=== PATIENT | male | born 1995 | race Caucasian/White ===

== ENCOUNTER 2021-12-11 18:48 | Emergency (ER) | payer BC ==
[2021-12-11 19:52] VITALS: TEMP 97.8
--- NOTE | 2021-12-11 20:48 | XR ---
EXAMINATION TYPE: XR shoulder complete RT DATE OF EXAM: 12/11/2021 COMPARISON: NONE HISTORY: Pain TECHNIQUE: 3 views FINDINGS: The glenohumeral joint shows joint space narrowing. The humeral head is somewhat posterior on the scapular view. The AC joint is intact. IMPRESSION: There is a partial posterior dislocation of the right humeral head. No fracture seen.
[2021-12-11] MEDS ORDERED: PROPOFOL 10 MG/ML 20 ML VIAL IV ONE (22:30)
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
--- NOTE | 2021-12-11 23:17 | XR ---
EXAMINATION TYPE: XR shoulder limited RT DATE OF EXAM: 12/11/2021 COMPARISON: NONE HISTORY: Post reduction TECHNIQUE: Single view FINDINGS: The glenohumeral joint appears to be anatomic. Exam is limited. No fracture seen. IMPRESSION: There appears to be anatomic reduction of the posterior shoulder joint dislocation compar ed to initial exam.
[2021-12-12 00:23] VITALS: RESP 17
[2021-12-12 00:24] VITALS: BP 130/62; PULSE 88
== END 2021-12-12 | disposition home or self-care (01) ==
LOC: EC 18:48
DX: S43.004A Unspecified dislocation of right shoulder joint, initial encounter (principal); W18.39XA Other fall on same level, initial encounter
CPT/HCPCS: 73020; 73030; 23650; 99284; J2704